=== PATIENT | female | born 1965 | race Caucasian/White ===

== ENCOUNTER 2016-09-21 13:08 | Emergency (ER) | payer OTHER ==
[~2016-09-21] VITALS: Ht 160 cm; Wt 48.8 kg
[~2016-09-21 13:08] MED LIST: HYDR-3533 PO; LOMO2.5T PO; LORA-474 PO; MAGN500T4 PO; PHOSPHOROUS PO; POTA25PA2 PO; VITA500S3 SL
[2016-09-21 13:13] VITALS: BP 140/96; PULSE 118; RESP 20; TEMP 97.7; O2SAT 100
[2016-09-21] MEDS ORDERED: SODIUM CHLOR 0.9% 1000 ML INJ 1,000 ML IV ONE (14:00)
[2016-09-21] MEDS ORDERED: LORA-474 PO (14:02)
[2016-09-21] MEDS ORDERED: [UNRECOGNIZED DRUG - REMARK] PO (14:02)
[2016-09-21 14:15] LABS: AUTOMATED NEUTROPHIL # 3.8 TH/MM3 (1.8-7.7); BASOPHIL % 0.3 % (0.0-2.0); EOSINOPHIL # 0.1 TH/MM3 (0-0.4); EOSINOPHIL % 1.7 % (0.0-4.0); HEMATOCRIT 34.6 % (35.0-46.0); LYMPH % 18.1 % (9.0-44.0); MEAN CELL VOLUME 93.6 FL (80.0-100.0); MEAN CORPUSCULAR HEMOGLOBIN 32.4 PG (27.0-34.0); MEAN CORPUSCULAR HGB CONC 34.6 % (32.0-36.0); NEUT % 71.9 % (16.0-70.0); PLATELET COUNT 215 TH/MM3 (150-450); RED CELL DISTRIBUTION WIDTH 13.6 % (11.6-17.2); WHITE BLOOD COUNT 5.3 TH/MM3 (4.0-11.0)
--- NOTE | 2016-09-21 14:19 | PD ---
HPI Chief Complaint: Musculoskeletal Complaint Time Seen by Provider: 13:41 Travel History International Travel<30 days: No Contact w/Intl Traveler<30days: No Traveled to known affect area: No History of Present Illness HPI This is a 51-year-old female who has a history of breast cancer currently in remission having completed chemotherapy and radiation in April who presents to the emergency department having woken up in the middle the night 5 days ago fallen and passed out. She thinks she felt dizzy. She found herself on the floor. She doesn't think she hit her head. She is reporting severe right sided rib pain, constant, worse with moving and worse with breathing, improved with rest. She feels like it's been getting worse over the past 2 days. She's been taking Tylenol at home but that has not been helping. She denies any associated shortness of breath. She denies any other injuries. PFSH Past Medical History Autoimmune Disease: No Blood Disorders: No Bipolar Disorder: Yes Anxiety: Yes Depression: Yes Cancer: Yes (SKIN CA, RIGHT BREAST) Cardiovascular Problems: No Chemotherapy: Yes (finished in april for Breast Cancer) Diminished Hearing: No Endocrine: No Gastrointestinal Disorders: No Genitourinary: Yes (UTI'S) Headaches: Yes Immune Disorder: No Musculoskeletal: No Neurologic: Yes Psychiatric: Yes (BIPOLAR) Reproductive: No Respiratory: No Immunizations Current: Yes Tetanus Vaccination: Unknown Influenza Vaccination: No ?: Not Menopausal: Yes : 1 Para: 1 Miscarriage: 0 : 0 Tubal Ligation: Yes Past Surgical History Body Medical Devices: PORT RT CHEST Other Surgery: Yes (Skin CA removal) Social History Alcohol Use: Yes (States 6 beers EOD) Tobacco Use: Yes (/2 PPD) Substance Use: Yes (Marijuana occ. ) Allergies-Medications (Allergen,Severity, Reaction): Coded Allergies: No Known Allergies (Verified , 09/21/16) Reported Meds & Prescriptions Reported Meds & Active Scripts Active Reported ["Estrogen pill"] 1 Tab PO DAILY Ativan (Lorazepam) 1 Mg Tab 1 Mg PO Q8H PRN Review of Systems Except as stated in HPI: all other systems reviewed are Neg Physical Exam Narrative GENERAL: Frail female in no acute distress SKIN: Ecchymoses on the lateral right rib cage HEAD: Atraumatic. Normocephalic. EYES: Pupils equal and round. No injection or drainage. ENT: Moist mucous membranes NECK: Trachea midline. CARDIOVASCULAR: Regular rate and rhythm. No murmur appreciated. RESPIRATORY: Clear to auscultation. Breath sounds equal bilaterally. GASTROINTESTINAL: Abdomen soft, non-tender, nondistended. MUSCULOSKELETAL: No obvious deformities. Tender to palpation along the lower lateral rib cage. NEUROLOGICAL: Awake and alert. No obvious cranial nerve deficits. Moving all extremities. PSYCHIATRIC: Appropriate mood and affect; insight and judgment normal. Data Data Last Documented VS Vital Signs Date Time Temp Pulse Resp B/P Pulse Ox O2 Delivery O2 Flow Rate FiO2 09/21/16 13:13 97.7 118 20 140/96 100 Orders Complete Blood Count With Diff (09/21/16 13:51) Comprehensive Metabolic Panel (09/21/16 13:51) ^ Insert Iv (09/21/16 13:51) D-Dimer (09/21/16 13:51) Chest, Single Ap (09/21/16 ) Electrocardiogram (09/21/16 ) Troponin I (09/21/16 13:51) Sodium Chlor 0.9% 1000 Ml Inj (Ns 1000 M (09/21/16 14:00) Morphine Inj (Morphine Inj) (09/21/16 14:30) Ct Pulmonary Angiogram (09/21/16 ) Labs Laboratory Tests Test 09/21/16 14:05 White Blood Count 5.3 TH/MM3 Red Blood Count 3.70 MIL/MM3 Hemoglobin 12.0 GM/DL Hematocrit 34.6 % Mean Corpuscular Volume 93.6 FL Mean Corpuscular Hemoglobin 32.4 PG Mean Corpuscular Hemoglobin 34.6 % Concent Red Cell Distribution Width 13.6 % Platelet Count 215 TH/MM3 Mean Platelet Volume 6.9 FL Neutrophils (%) (Auto) 71.9 % Lymphocytes (%) (Auto) 18.1 % Monocytes (%) (Auto) 8.0 % Eosinophils (%) (Auto) 1.7 % Basophils (%) (Auto) 0.3 % Neutrophils # (Auto) 3.8 TH/MM3 Lymphocytes # (Auto) 1.0 TH/MM3 Monocytes # (Auto) 0.4 TH/MM3 Eosinophils # (Auto) 0.1 TH/MM3 Basophils # (Auto) 0.0 TH/MM3 CBC Comment DIFF FINAL Differential Comment D-Dimer Quantitative (PE/DVT) 0.82 MG/L FEU Sodium Level 137 MEQ/L Potassium Level 3.6 MEQ/L Chloride Level 99 MEQ/L Carbon Dioxide Level 29.4 MEQ/L Anion Gap 9 MEQ/L Blood Urea Nitrogen 13 MG/DL Creatinine 0.64 MG/DL Estimat Glomerular Filtration 97 ML/MIN Rate Random Glucose 119 MG/DL Calcium Level 9.6 MG/DL Total Bilirubin 0.5 MG/DL Aspartate Amino Transf 30 U/L (AST/SGOT) Alanine Aminotransferase 31 U/L (ALT/SGPT) Alkaline Phosphatase 90 U/L Troponin I LESS THAN 0.02 NG/ML Total Protein 7.3 GM/DL Albumin 3.9 GM/DL MDM Medical Decision Making Medical Screen Exam Complete: Yes Emergency Medical Condition: Yes Interpretation(s) Afebrile, tachycardic, mild hypertension No leukocytosis Electrolytes are reassuring Troponin is normal D-dimer is 0.82 Last 24 hours Impressions Chest X-Ray 09/21/16 0000 Signed Impressions: Service Date/Time: Wednesday, September 21, 2016 13:54 - CONCLUSION: 1. No acute cardiopulmonary findings. Moiz Adair MD Differential Diagnosis Rib fracture, pulmonary contusion, pneumothorax, hemothorax, pulmonary embolism Narrative Course This is a 51-year-old female who has a history of breast cancer currently in remission who presents to the emergency department having had a syncopal episode several days ago injuring her right ribs when she fell. She's had increasing rib pain since then. She was placed in a monitor and an IV was established. Labs are obtained including a d-dimer given the patient's episode of syncope, tachycardia and appearance of dyspnea on exam. Labs were all reassuring with the exception of mildly elevated d-dimer. CT pulmonary angiogram was obtained. Chest x-ray demonstrates no sign of pneumothorax or hemothorax. If the CT is negative I think the patient can be discharged with pain control for rib fracture. Celestina Hackett MD Sep 21, 2016 14:19
--- NOTE | 2016-09-21 14:22 | RADHPO ---
EXAM DATE/TIME: 09/21/2016 13:54 [facility] COMPARISON: CHEST SINGLE AP, April 26, 2015, 14:01. INDICATIONS : Syncope. MEDICAL HISTORY : None. SURGICAL HISTORY : None. ENCOUNTER: Initial ACUITY: 3 days PAIN SCORE: 8/10 LOCATION: Bilateral chest FINDINGS: A single view of the chest demonstrates the lungs to be symmetrically aerated without evidence of mas s, infiltrate or effusion. The cardiomediastinal contours are unremarkable. Osseous structures demo nstrated old, healed left clavicular fracture. CONCLUSION: 1. No acute cardiopulmonary findings. Moiz Adair MD on September 21, 2016 at 14:16 Board Certified Radiologist. This report was verified electronically.
[2016-09-21 14:23] LABS: CHLORIDE 99 MEQ/L (98-107); HEMO FLAGS DIFF FINAL; POTASSIUM 3.6 MEQ/L (3.5-5.1); SODIUM (NA) 137 MEQ/L (136-145)
[2016-09-21 14:27] LABS: ANION GAP 9 MEQ/L (5-15); BICARBONATE 29.4 MEQ/L (21.0-32.0); BLOOD UREA NITROGEN 13 MG/DL (7-18)
[2016-09-21 14:30] LABS: ALT (GPT) 31 U/L (10-53); AST (GOT) 30 U/L (15-37); GLOMERULAR FILTRATION RATE 97 ML/MIN (>89)
[2016-09-21] MEDS ORDERED: MORPHINE SULFATE 4 MG/ML INJ IV PUSH ONE ×2 (14:30→15:45)
[2016-09-21 14:32] LABS: TOTAL BILIRUBIN ADULT 0.5 MG/DL (0.2-1.0)
[2016-09-21 14:33] LABS: ALKALINE PHOSPHATASE 90 U/L (45-117)
[2016-09-21] MEDS ORDERED: HYDR-3533 PO (15:42)
--- NOTE | 2016-09-21 15:42 | PD ---
Data Data Last Documented VS Vital Signs Date Time Temp Pulse Resp B/P Pulse Ox O2 Delivery O2 Flow Rate FiO2 09/21/16 13:13 97.7 118 20 140/96 100 Orders Complete Blood Count With Diff (09/21/16 13:51) Comprehensive Metabolic Panel (09/21/16 13:51) ^ Insert Iv (09/21/16 13:51) D-Dimer (09/21/16 13:51) Chest, Single Ap (09/21/16 ) Electrocardiogram (09/21/16 ) Troponin I (09/21/16 13:51) Sodium Chlor 0.9% 1000 Ml Inj (Ns 1000 M (09/21/16 14:00) Morphine Inj (Morphine Inj) (09/21/16 14:30) Ct Pulmonary Angiogram (09/21/16 ) Resp Incentive Spirometry (09/21/16 ) Morphine Inj (Morphine Inj) (09/21/16 15:45) Labs Laboratory Tests Test 09/21/16 14:05 White Blood Count 5.3 TH/MM3 Red Blood Count 3.70 MIL/MM3 Hemoglobin 12.0 GM/DL Hematocrit 34.6 % Mean Corpuscular Volume 93.6 FL Mean Corpuscular Hemoglobin 32.4 PG Mean Corpuscular Hemoglobin 34.6 % Concent Red Cell Distribution Width 13.6 % Platelet Count 215 TH/MM3 Mean Platelet Volume 6.9 FL Neutrophils (%) (Auto) 71.9 % Lymphocytes (%) (Auto) 18.1 % Monocytes (%) (Auto) 8.0 % Eosinophils (%) (Auto) 1.7 % Basophils (%) (Auto) 0.3 % Neutrophils # (Auto) 3.8 TH/MM3 Lymphocytes # (Auto) 1.0 TH/MM3 Monocytes # (Auto) 0.4 TH/MM3 Eosinophils # (Auto) 0.1 TH/MM3 Basophils # (Auto) 0.0 TH/MM3 CBC Comment DIFF FINAL Differential Comment D-Dimer Quantitative (PE/DVT) 0.82 MG/L FEU Sodium Level 137 MEQ/L Potassium Level 3.6 MEQ/L Chloride Level 99 MEQ/L Carbon Dioxide Level 29.4 MEQ/L Anion Gap 9 MEQ/L Blood Urea Nitrogen 13 MG/DL Creatinine 0.64 MG/DL Estimat Glomerular Filtration 97 ML/MIN Rate Random Glucose 119 MG/DL Calcium Level 9.6 MG/DL Total Bilirubin 0.5 MG/DL Aspartate Amino Transf 30 U/L (AST/SGOT) Alanine Aminotransferase 31 U/L (ALT/SGPT) Alkaline Phosphatase 90 U/L Troponin I LESS THAN 0.02 NG/ML Total Protein 7.3 GM/DL Albumin 3.9 GM/DL MDM Supervised Visit with RAMIREZ: No Diagnosis Primary Impression: Rib contusion Qualified Code: S20.211A - Rib contusion, right, initial encounter Patient Instructions: General Instructions Additional Instruction: If you develop increasing chest pain, shortness of breath, fever or severe pain return to the emergency room. Med/Other Pt SpecificInfo: Prescription(s) given Scripts Hydrocodone-Acetaminophen (Lortab)5-325 Mg Tab1-2 Tab PO Q6H PRN (PAIN) #20 TAB Ref 0 Prov:Celestina Hackett MD 09/21/16 Disposition: 01 DISCHARGE HOME Condition: Stable Celestina Hackett MD Sep 21, 2016 15:42
--- NOTE | 2016-09-21 15:51 | RADHPO ---
EXAM DATE/TIME: 09/21/2016 15:20 [facility] COMPARISON: CT ABDOMEN & PELVIS W CONTRAST, April 11, 2016, 23:44. INDICATIONS : Chest pain. evaluate for embolism. IV CONTRAST: 70 cc Omnipaque 350 (iohexol) IV RADIATION DOSE: 6.99 CTDIvol (mGy) MEDICAL HISTORY : None SURGICAL HISTORY : None. ENCOUNTER: Initial ACUITY: 1 day PAIN SCALE: 4/10 LOCATION: chest TECHNIQUE: Volumetric scanning of the chest was performed using a pulmonary embolism protocol MIP images were re constructed. Using automated exposure control and adjustment of the mA and/or kV according to patien t size, radiation dose was kept as low as reasonably achievable to obtain optimal diagnostic quality images. FINDINGS: PULMONARY ARTERIES: No filling defects are seen in the pulmonary arteries through the segmental level. LUNGS: There is no consolidation or pneumothorax . No concerning pulmonary nodule is visualized. PLEURAE: There is no pleural thickening or pleural effusion. MEDIASTINUM: There is good visualization of the great vessels of the middle mediastinum. No evidence of mediastin al or hilar adenopathy/mass. MUSCULOSKELETAL: Within normal limits for patient age. MISCELLANEOUS: The visualized upper abdominal organs demonstrate no acute abnormality. There is a small calcified ly mph node immediately posterior to the caudate lobe of the liver. CONCLUSION: 1. No pulmonary embolus identified. 2. 1 cm calcified lymph node posterior to the caudate lobe of the liver. Moiz Adair MD on September 21, 2016 at 15:46 Board Certified Radiologist. This report was verified electronically.
[2016-09-21 16:00] VITALS: BP 140/71; PULSE 78; RESP 14; RESP 16; O2SAT 96
[2016-09-21] MEDS ORDERED: IOHEXOL 350 MG/ML 10 ML VIAL (for RAD DIAG) IV ONE (16:36)
--- NOTE | 2016-09-22 16:39 | EKG ---
Date Performed: 09/21/2016 Time Performed: 14:01:16 PTAGE: 51 years EKG: Sinus rhythm Normal ECG NO PREVIOUS TRACING DOCTOR: Steph Bella Interpretating Date/Time 09/22/2016 16:35:04
== END 2016-09-21 16:35 | disposition home or self-care (01) ==
LOC: PHED 13:08
DX: S20.211A Contusion of right front wall of thorax, initial encounter (principal); F17.210 Nicotine dependence, cigarettes, uncomplicated; W17.89XA Other fall from one level to another, initial encounter; Y93.89 Activity, other specified; Y92.009 Unspecified place in unspecified non-institutional (private) residence as the place of occurrence of the external cause; R55 Syncope and collapse; R00.0 Tachycardia, unspecified
CPT/HCPCS: 71010; 71275; 80053; 84484; 85025; 85379; 93005; 94150; 96361; 96374; 96376; 99284; J2270; J7030; Q9967

== ENCOUNTER 2017-01-08 09:37 | Emergency (ER) | payer OTHER ==
[~2017-01-08] VITALS: Ht 160 cm; Wt 49.7 kg
[~2017-01-08 09:37] MED LIST changes: -LOMO2.5T PO; -MAGN500T4 PO; -PHOSPHOROUS PO; -POTA25PA2 PO; -VITA500S3 SL; +[UNRECOGNIZED DRUG - REMARK] PO
[2017-01-08 09:42] VITALS: BP 139/94; PULSE 152; RESP 18; TEMP 98.1; O2SAT 100
[2017-01-08 09:59] VITALS: BP 166/91; PULSE 126; RESP 18; O2SAT 100
[2017-01-08 10:04] VITALS: O2SAT 100
--- NOTE | 2017-01-08 10:09 | PD ---
HPI Chief Complaint: Respiratory Symptoms Time Seen by Provider: 09:53 Travel History International Travel<30 days: No Contact w/Intl Traveler<30days: No Traveled to known affect area: No History of Present Illness HPI The patient was seen and examined in the presence of the nurse. This patient woke up 3 days ago with left lower chest pain. It's readily reproducible with a deep breath. Denies fever or injury or cough. She is very anxious and takes Ativan daily but denies withdrawal or missing doses. Last dose was last night. She is a smoker but denies cardiac or pulmonary disease. No alleviating factors. Severity is moderate. PFSH Past Medical History Autoimmune Disease: No Blood Disorders: No Bipolar Disorder: Yes Anxiety: Yes Depression: Yes Cancer: Yes (SKIN CA, RIGHT BREAST) Cardiovascular Problems: No Chemotherapy: Yes (finished in april for Breast Cancer) Diminished Hearing: No Endocrine: No Gastrointestinal Disorders: No Genitourinary: Yes (UTI'S) Headaches: Yes Immune Disorder: No Musculoskeletal: No Neurologic: Yes Psychiatric: Yes (BIPOLAR) Reproductive: No Respiratory: No Immunizations Current: Yes Tetanus Vaccination: > 5 Years Influenza Vaccination: No ?: Not Menopausal: Yes : 1 Para: 1 Miscarriage: 0 : 0 Tubal Ligation: Yes Past Surgical History Body Medical Devices: PORT RT CHEST Other Surgery: Yes (Skin CA removal) Social History Alcohol Use: Yes (States 6 beers EOD) Tobacco Use: Yes (/2 PPD) Substance Use: Yes (Marijuana occ. ) Allergies-Medications (Allergen,Severity, Reaction): Coded Allergies: No Known Allergies (Verified , 01/08/17) Reported Meds & Prescriptions Reported Meds & Active Scripts Active Tramadol (Tramadol HCl) 50 Mg Tab 50 Mg PO Q6H PRN Reported ["Estrogen pill"] 1 Tab PO DAILY Ativan (Lorazepam) 1 Mg Tab 1 Mg PO Q8H PRN Review of Systems General / Constitutional: No: Fever Eyes: No: Visual changes HENT: No: Headaches Cardiovascular: Positive: Chest Pain or Discomfort, Tachycardia Respiratory: No: Shortness of Breath Gastrointestinal: No: Abdominal Pain Genitourinary: No: Dysuria Musculoskeletal: No: Pain Skin: No Rash Neurologic: No: Weakness Psychiatric: Positive: Anxiety, No: Depression Endocrine: No: Polydipsia Hematologic/Lymphatic: No: Easy Bruising Physical Exam Narrative GENERAL: Thin anxious tachycardic patient with pleuritic chest pain. SKIN: Focused skin assessment reveals no rash and nodules. Skin is Warm and dry. HEAD: Atraumatic. Normocephalic. EYES: Pupils equal and round. No scleral icterus. No injection or drainage. ENT: No nasal bleeding or discharge. Mucous membranes pink and moist. NECK: Trachea midline. No JVD. CARDIOVASCULAR: Regular rate and rhythm. No murmur appreciated. Tachycardic at 130 RESPIRATORY: No accessory muscle use. Clear to auscultation. Breath sounds equal bilaterally. GASTROINTESTINAL: Abdomen soft, non-tender, nondistended. Hepatic and splenic margins not palpable. MUSCULOSKELETAL: No obvious deformities. No clubbing. No cyanosis. No edema. NEUROLOGICAL: Awake and alert. No obvious cranial nerve deficits. Motor grossly within normal limits. Normal speech. PSYCHIATRIC: Very anxious mood and affect; insight and judgment normal. Data Data Last Documented VS Vital Signs Date Time Temp Pulse Resp B/P Pulse Ox O2 Delivery O2 Flow Rate FiO2 01/08/17 11:10 16 01/08/17 10:23 106 121/80 96 Room Air 01/08/17 09:42 98.1 Orders Complete Blood Count With Diff (01/08/17 10:01) Basic Metabolic Panel (Bmp) (01/08/17 10:01) D-Dimer (01/08/17 10:01) Act Partial Throm Time (Ptt) (01/08/17 10:01) Prothrombin Time / Inr (Pt) (01/08/17 10:01) Ckmb (Isoenzyme) Profile (01/08/17 10:01) Troponin I (01/08/17 10:01) Iv Access Insert/Monitor (01/08/17 10:01) Electrocardiogram (01/08/17 10:01) Ecg Monitoring (01/08/17 10:01) Oximetry (01/08/17 10:01) Chest, Single Ap (01/08/17 10:01) Sodium Chloride 0.9% Flush (Ns Flush) (01/08/17 10:15) Lorazepam Inj (Ativan Inj) (01/08/17 10:15) Acetamin-Hydrocod 325-5 Mg ([place] 5-325 (01/08/17 10:15) CKMB (01/08/17 10:05) CKMB% (01/08/17 10:05) Ct Pulmonary Angiogram (01/08/17 ) Iohexol 350 Inj (Omnipaque 350 Inj) (01/08/17 11:35) Labs Laboratory Tests Test 01/08/17 10:05 White Blood Count 6.2 TH/MM3 Red Blood Count 4.34 MIL/MM3 Hemoglobin 14.1 GM/DL Hematocrit 42.4 % Mean Corpuscular Volume 97.7 FL Mean Corpuscular Hemoglobin 32.5 PG Mean Corpuscular Hemoglobin 33.3 % Concent Red Cell Distribution Width 13.6 % Platelet Count 246 TH/MM3 Mean Platelet Volume 7.4 FL Neutrophils (%) (Auto) 64.9 % Lymphocytes (%) (Auto) 26.2 % Monocytes (%) (Auto) 6.6 % Eosinophils (%) (Auto) 1.7 % Basophils (%) (Auto) 0.6 % Neutrophils # (Auto) 4.1 TH/MM3 Lymphocytes # (Auto) 1.6 TH/MM3 Monocytes # (Auto) 0.4 TH/MM3 Eosinophils # (Auto) 0.1 TH/MM3 Basophils # (Auto) 0.0 TH/MM3 CBC Comment DIFF FINAL Differential Comment Prothrombin Time 9.8 SEC Prothromb Time International 0.9 RATIO Ratio Activated Partial 27.1 SEC Thromboplast Time D-Dimer Quantitative (PE/DVT) 0.97 MG/L FEU Sodium Level 142 MEQ/L Potassium Level 3.5 MEQ/L Chloride Level 100 MEQ/L Carbon Dioxide Level 29.8 MEQ/L Anion Gap 12 MEQ/L Blood Urea Nitrogen 11 MG/DL Creatinine 0.86 MG/DL Estimat Glomerular Filtration 69 ML/MIN Rate Random Glucose 124 MG/DL Calcium Level 10.2 MG/DL Total Creatine Kinase 152 U/L Creatine Kinase MB 1.3 NG/ML Troponin I LESS THAN 0.02 NG/ML MDM Medical Decision Making Medical Screen Exam Complete: Yes Emergency Medical Condition: Yes Medical Record Reviewed: Yes Differential Diagnosis Differential diagnosis includes [place], angina, pericarditis, pleurisy, GERD, anxiety. Narrative Course I have reviewed the patient's electronic medical record. IV placed I reviewed the EKG which shows sinus tachycardia without ectopy or ST elevation I reviewed the chest x-ray which is normal Extended cardiac monitoring shows sinus tachycardia without ectopy CBC is normal Metabolic profile is normal CK shows a normal MB percent Troponin is normal Coagulation studies are normal D-dimer was 0.97, not sufficient to rule out PE Given her pleuritic pain I wanted to rule out PE. CT pulmonary and RhoGAM was done. There is no PE. I spoke with radiologist about the findings. There is a area of induration and some fluid in the right breast as this is the rest she had a lumpectomy and radiation for breast cancer. Prior studies have showed induration and fluid and that exact same region but it is more prominent on today's study. I reviewed that at length with the patient and she is going to call her primary physician and oncologist to discuss these findings in any further workup that may be indicated. Her chest pain is clearly noncardiac and will not require inpatient evaluation. It seems musculoskeletal which is why is worsened with deep breath and torso movement Wrote her some tramadol to use as needed I gave her a pain pill and IV Ativan dose Her tachycardia has resolved and her heart rate is sinus rhythm in the 90s I gave her a pain pill and dose of Ativan for anxiety. She says she can get a ride home. Diagnosis Primary Impression: Non-cardiac chest pain Additional Impression: Pleuritic chest pain Additional Instructions: The patient was advised to follow up with their primary care physician and oncologist and return if they worsen. Discuss your CT findings with your physicians Med/Other Pt SpecificInfo: Prescription(s) given Scripts Tramadol 50 Mg Tab50 Mg PO Q6H PRN (PAIN) #20 TAB Ref 0 Prov:Danny Escalera MD 01/08/17 Disposition: 01 DISCHARGE HOME Condition: Stable Danny Escalera MD January 08, 2017 10:09
[2017-01-08 10:11] LABS: AUTOMATED NEUTROPHIL # 4.1 TH/MM3 (1.8-7.7); BASOPHIL % 0.6 % (0.0-2.0); EOSINOPHIL # 0.1 TH/MM3 (0-0.4); EOSINOPHIL % 1.7 % (0.0-4.0); HEMATOCRIT 42.4 % (35.0-46.0); HEMO FLAGS DIFF FINAL; LYMPH % 26.2 % (9.0-44.0); LYMPHOCYTE # 1.6 TH/MM3 (1.0-4.8); MEAN CELL VOLUME 97.7 FL (80.0-100.0); MEAN CORPUSCULAR HEMOGLOBIN 32.5 PG (27.0-34.0); MEAN CORPUSCULAR HGB CONC 33.3 % (32.0-36.0); MONO % 6.6 % (0.0-8.0); NEUT % 64.9 % (16.0-70.0); PLATELET COUNT 246 TH/MM3 (150-450); RED BLOOD COUNT 4.34 MIL/MM3 (4.00-5.30); RED CELL DISTRIBUTION WIDTH 13.6 % (11.6-17.2); WHITE BLOOD COUNT 6.2 TH/MM3 (4.0-11.0)
[2017-01-08] MEDS ORDERED: SODIUM CHLORIDE 0.9% FLUSH 10 ML FLUSH IVF PRN (10:15)
[2017-01-08] MEDS ORDERED: LORazepam 2 MG/ML VIAL IV PUSH ONE (10:15)
[2017-01-08] MEDS ORDERED: ACETAMINOPHEN/HYDROcodone 325 MG/5 MG TAB PO ONE (10:15)
[2017-01-08 10:23] VITALS: BP 121/80; PULSE 106; RESP 16; O2SAT 96
[2017-01-08 10:29] LABS: CHLORIDE 100 MEQ/L (98-107); POTASSIUM 3.5 MEQ/L (3.5-5.1); SODIUM (NA) 142 MEQ/L (136-145)
[2017-01-08 10:34] LABS: ANION GAP 12 MEQ/L (5-15); APTT (PATIENT) 27.1 SEC (24.3-30.1); BICARBONATE 29.8 MEQ/L (21.0-32.0); BLOOD UREA NITROGEN 11 MG/DL (7-18); INTERNATIONAL NORMALIZED RATIO 0.9 RATIO; PROTHROMBIN TIME - PATIENT 9.8 SEC (9.8-11.6)
--- NOTE | 2017-01-08 10:34 | RADHPO ---
EXAM DATE/TIME: 01/08/2017 10:15 [facility] COMPARISON: CHEST SINGLE AP, September 21, 2016, 13:54. INDICATIONS : Left side chest pain & shortness of breath. MEDICAL HISTORY : Carcinoma, breast. Skin Cancer. Chemotherapy. Smoker. SURGICAL HISTORY : Tubal ligation. ENCOUNTER: Initial ACUITY: 4 - 6 days PAIN SCORE: 10/10 LOCATION: Left chest FINDINGS: A single view of the chest demonstrates the lungs to be symmetrically aerated without evidence of mas s, infiltrate or effusion. The cardiomediastinal contours are unremarkable. Osseous structures are intact. CONCLUSION: No acute disease. Doug Adair MD FACR on January 08, 2017 at 10:31 Board Certified Radiologist. This report was verified electronically.
[2017-01-08 10:37] LABS: GLOMERULAR FILTRATION RATE 69 ML/MIN (>89)
[2017-01-08 10:40] LABS: CREATINE KINASE 152 U/L (26-192)
[2017-01-08 10:53] LABS: CKMB 1.3 NG/ML (0.5-3.6)
[2017-01-08] MEDS ORDERED: IOHEXOL 350 MG/ML 10 ML VIAL (for RAD DIAG) IV ONE (11:35)
--- NOTE | 2017-01-08 12:06 | RADHPO ---
EXAM DATE/TIME: 01/08/2017 11:22 [facility] COMPARISON: CT PULMONARY ANGIOGRAM, September 21, 2016, 15:20. INDICATIONS : Left lower chest pain x 3 days. IV CONTRAST: 85 cc Omnipaque 350 (iohexol) IV RADIATION DOSE: 6.39 CTDIvol (mGy) MEDICAL HISTORY : Carcinoma, breast. SURGICAL HISTORY : Tubal ligation. ENCOUNTER: Initial ACUITY: 3 days PAIN SCALE: 5/10 LOCATION: Left lower chest TECHNIQUE: Volumetric scanning of the chest was performed using a pulmonary embolism protocol MIP images were re constructed. Using automated exposure control and adjustment of the mA and/or kV according to patien t size, radiation dose was kept as low as reasonably achievable to obtain optimal diagnostic quality images. FINDINGS: There are minimal parenchymal changes laterally in the right lung. There is no axillary adenopathy. There is radiographically significant mediastinal adenopathy. There is no evidence for central pulmonary emboli. There is no pericardial effusion. There is induration in the right chest wall with a small fluid collection in the right breast. The i nduration and the swelling in the right chest wall has progressed. Granuloma is present in the spleen. CONCLUSION: 1. There is no evidence for central pulmonary emboli. 2. Abnormal right breast. 3. Minimal induration in the lung beneath the right breast. The patient has had previous radiation therapy, this may well be the result of such. Doug Adair MD FACR on January 08, 2017 at 11:50 Board Certified Radiologist. This report was verified electronically.
[2017-01-08] MEDS ORDERED: TRAM50TA PO (14:29)
[2017-01-08 15:05] VITALS: BP 117/75; PULSE 85; RESP 18; O2SAT 99
--- NOTE | 2017-01-09 13:50 | EKG ---
Date Performed: 01/08/2017 Time Performed: 09:46:00 PTAGE: 51 years EKG: Probable sinus tachycardia Right atrial enlargement Minimal lateral ST segment changes Comp ared to previous tracing, the right atrial enlargement and the sinus tachycardia are new. Consider a nd exclude pulmonary embolus. The minimal lateral ST segment changes are new. Abnormal ECG PREVIOUS TRACING : 09/21/2016 14.01 DOCTOR: Mary Wilcox Interpretating Date/Time 01/09/2017 13:48:56
== END 2017-01-08 15:05 | disposition home or self-care (01) ==
LOC: PHED 09:37
DX: R07.89 Other chest pain (principal); R07.81 Pleurodynia; R94.31 Abnormal electrocardiogram [ECG] [EKG]; F17.200 Nicotine dependence, unspecified, uncomplicated; Z86.59 Personal history of other mental and behavioral disorders; Z85.828 Personal history of other malignant neoplasm of skin; Z85.3 Personal history of malignant neoplasm of breast; Z87.448 Personal history of other diseases of urinary system; Z86.69 Personal history of other diseases of the nervous system and sense organs
CPT/HCPCS: 71010; 71275; 80048; 82550; 82552; 84484; 85025; 85379; 85610; 85730; 93005; 96374; 99284; J2060; Q9967

== ENCOUNTER 2017-01-12 18:08 | Emergency (ER) | payer OTHER ==
[~2017-01-12] VITALS: Ht 160 cm; Wt 50.0 kg
[~2017-01-12 18:08] MED LIST changes: -HYDR-3533 PO; +TRAM50TA PO
[2017-01-12 18:27] VITALS: BP 114/69; PULSE 93; RESP 15; TEMP 98; O2SAT 98
[2017-01-12] MEDS ORDERED: SODIUM CHLORIDE 0.9% FLUSH 10 ML FLUSH IVF PRN (18:45)
--- NOTE | 2017-01-12 18:48 | PD ---
HPI . Seizure Chief Complaint: Seizure Time Seen by Provider: 18:32 Travel History International Travel<30 days: No Contact w/Intl Traveler<30days: No Traveled to known affect area: No History of Present Illness HPI Patient presents to us via [facility] status post a possible seizure. EMS reports that she had an episode en route of diffuse movement but that it did not appear to be a seizure. It was not associated with loss of consciousness or postictal period. Patient admits to alcohol use. She drinks daily. She believes that she has had 2 beers so far today. Patient denies any associated trauma associated with seizure. She has no symptoms currently. PFSH Past Medical History Autoimmune Disease: No Blood Disorders: No Bipolar Disorder: Yes Anxiety: Yes Depression: Yes Cancer: Yes (SKIN CA, RIGHT BREAST) Cardiovascular Problems: No Chemotherapy: Yes (finished in [place] for Breast Cancer) Diminished Hearing: No Endocrine: No Gastrointestinal Disorders: No Genitourinary: Yes (UTI'S) Headaches: Yes Immune Disorder: No Musculoskeletal: No Neurologic: Yes Psychiatric: Yes (BIPOLAR) Reproductive: No Respiratory: No Immunizations Current: Yes Tetanus Vaccination: Unknown Influenza Vaccination: No ?: Not Menopausal: Yes : 1 Para: 1 Miscarriage: 0 : 0 Tubal Ligation: Yes Past Surgical History Body Medical Devices: PORT RT CHEST Other Surgery: Yes (Skin CA removal) Social History Alcohol Use: Yes (DAILY) Tobacco Use: Yes (1/2 PPD) Substance Use: Yes (Marijuana occ. ) Allergies-Medications (Allergen,Severity, Reaction): Coded Allergies: No Known Allergies (Verified , 01/12/17) Reported Meds & Prescriptions Reported Meds & Active Scripts Active Tramadol (Tramadol HCl) 50 Mg Tab 50 Mg PO Q6H PRN Reported ["Estrogen pill"] 1 Tab PO DAILY Ativan (Lorazepam) 1 Mg Tab 1 Mg PO Q8H PRN Review of Systems Except as stated in HPI: all other systems reviewed are Neg General / Constitutional: No: Fever, Chills Eyes: No: Blurred Vision HENT: No: Headaches Cardiovascular: No: Chest Pain or Discomfort Respiratory: Positive: Shortness of Breath Gastrointestinal: No: Nausea, Vomiting, Diarrhea Genitourinary: No: Urgency, Frequency, Dysuria Neurologic: Positive: Seizures Psychiatric: Positive: Substance Abuse Physical Exam Narrative GENERAL: Patient appears pleasantly intoxicated. SKIN: Warm and dry. HEAD: Atraumatic. Normocephalic. EYES: Pupils equal and round. Sclera are anicteric. Extraocular movements are intact. ENT: No nasal bleeding or discharge. Mucous membranes pink and moist. NECK: Trachea midline. Neck is supple. CARDIOVASCULAR: Regular rate and rhythm. Heart sounds are normal. RESPIRATORY: No accessory muscle use. Lungs are clear with full air movement throughout. GASTROINTESTINAL: Abdomen soft, non-tender, nondistended. MUSCULOSKELETAL: No obvious deformities. No edema. NEUROLOGICAL: Awake and alert. No obvious cranial nerve deficits. Motor grossly within normal limits. Normal speech. PSYCHIATRIC: Appropriate mood and affect; insight and judgment normal. Data Data Last Documented VS Vital Signs Date Time Temp Pulse Resp B/P Pulse Ox O2 Delivery O2 Flow Rate FiO2 01/12/17 18:37 17 98 Room Air 01/12/17 18:27 98.0 93 114/69 Orders Complete Blood Count With Diff (01/12/17 18:32) Alcohol (Ethanol) (01/12/17 18:32) Iv Access Insert/Monitor (01/12/17 18:32) Comprehensive Metabolic Panel (01/12/17 18:32) Sodium Chloride 0.9% Flush (Ns Flush) (01/12/17 18:45) Drug Screen, Random Urine (01/12/17 18:43) Labs Laboratory Tests Test 01/12/17 18:45 White Blood Count 6.5 TH/MM3 Red Blood Count 3.48 MIL/MM3 Hemoglobin 11.6 GM/DL Hematocrit 34.1 % Mean Corpuscular Volume 97.9 FL Mean Corpuscular Hemoglobin 33.2 PG Mean Corpuscular Hemoglobin 33.9 % Concent Red Cell Distribution Width 13.7 % Platelet Count 157 TH/MM3 Mean Platelet Volume 8.1 FL Neutrophils (%) (Auto) 78.8 % Lymphocytes (%) (Auto) 10.8 % Monocytes (%) (Auto) 8.6 % Eosinophils (%) (Auto) 1.5 % Basophils (%) (Auto) 0.3 % Neutrophils # (Auto) 5.1 TH/MM3 Lymphocytes # (Auto) 0.7 TH/MM3 Monocytes # (Auto) 0.6 TH/MM3 Eosinophils # (Auto) 0.1 TH/MM3 Basophils # (Auto) 0.0 TH/MM3 CBC Comment DIFF FINAL Differential Comment Sodium Level 131 MEQ/L Potassium Level 2.9 MEQ/L Chloride Level 89 MEQ/L Carbon Dioxide Level 24.8 MEQ/L Anion Gap 17 MEQ/L Blood Urea Nitrogen 2 MG/DL Creatinine 0.73 MG/DL Estimat Glomerular Filtration 84 ML/MIN Rate Random Glucose 95 MG/DL Calcium Level 8.6 MG/DL Total Bilirubin 0.7 MG/DL Aspartate Amino Transf 95 U/L (AST/SGOT) Alanine Aminotransferase 49 U/L (ALT/SGPT) Alkaline Phosphatase 110 U/L Total Protein 7.2 GM/DL Albumin 3.9 GM/DL Ethyl Alcohol Level 34 MG/DL [facility] Medical Decision Making Medical Screen Exam Complete: Yes Emergency Medical Condition: Yes Differential Diagnosis Differential diagnosis of seizure includes but is not limited to epilepsy, electrolyte abnormality, previous stroke, closed head injury Narrative Course Patient presents to us status post some abnormal movement at home. She appears intoxicated. CBC & BMP Diagram 01/12/17 18:45 LFTs are unremarkable. Alcohol level is 34. I did not check a magnesium level but I suspect that it is low also. I will place her on supplemental potassium and magnesium. Diagnosis Primary Impression: Tremor Additional Impressions: Alcohol abuse Hypokalemia Patient Instructions: General Instructions, Hypokalemia (DC) Med/Other Pt SpecificInfo: Prescription(s) given Scripts Potassium Chloride ER 20 Meq Tab20 Meq PO DAILY #30 TAB Ref 0 starting after the 5 days of twice daily replacement Prov:Camille Arenas MD 01/12/17 Magnesium 400 Mg [id number] Mg PO DAILY #30 TAB Ref 0 Prov:Camille Arenas MD 01/12/17 Potassium Chloride ER 20 Meq Tab40 Meq PO BID 7 Days Ref 0 Prov:Camille Arenas MD 01/12/17 Disposition: DISCHARGE HOME Condition: Stable Camille Arenas MD January 12, 2017 18:48
[2017-01-12 19:06] LABS: AUTOMATED NEUTROPHIL # 5.1 TH/MM3 (1.8-7.7); BASOPHIL % 0.3 % (0.0-2.0); EOSINOPHIL # 0.1 TH/MM3 (0-0.4); EOSINOPHIL % 1.5 % (0.0-4.0); HEMATOCRIT 34.1 % (35.0-46.0); HEMO FLAGS DIFF FINAL; LYMPH % 10.8 % (9.0-44.0); LYMPHOCYTE # 0.7 TH/MM3 (1.0-4.8); MEAN CELL VOLUME 97.9 FL (80.0-100.0); MEAN CORPUSCULAR HEMOGLOBIN 33.2 PG (27.0-34.0); MEAN CORPUSCULAR HGB CONC 33.9 % (32.0-36.0); MONO % 8.6 % (0.0-8.0); NEUT % 78.8 % (16.0-70.0); PLATELET COUNT 157 TH/MM3 (150-450); RED BLOOD COUNT 3.48 MIL/MM3 (4.00-5.30); RED CELL DISTRIBUTION WIDTH 13.7 % (11.6-17.2); WHITE BLOOD COUNT 6.5 TH/MM3 (4.0-11.0)
[2017-01-12 19:39] LABS: ALKALINE PHOSPHATASE 110 U/L (45-117); ALT (GPT) 49 U/L (10-53); ANION GAP 17 MEQ/L (5-15); AST (GOT) 95 U/L (15-37); BICARBONATE 24.8 MEQ/L (21.0-32.0); BLOOD UREA NITROGEN 2 MG/DL (7-18); CHLORIDE 89 MEQ/L (98-107); GLOMERULAR FILTRATION RATE 84 ML/MIN (>89); SODIUM (NA) 131 MEQ/L (136-145); TOTAL BILIRUBIN ADULT 0.7 MG/DL (0.2-1.0)
[2017-01-12 19:43] LABS: POTASSIUM 2.9 MEQ/L (3.5-5.1)
[2017-01-12] MEDS ORDERED: POTASSIUM CHLORIDE 20 MEQ CONTROLLED RELEASE TAB PO ONE (20:00)
[2017-01-12] MEDS ORDERED: POTA-163 PO ×2 (20:05→20:06)
[2017-01-12] MEDS ORDERED: MAGN1TAB14 PO (20:06)
== END 2017-01-12 20:22 | disposition home or self-care (01) ==
LOC: NEPD 18:08
DX: G25.0 Essential tremor (principal); E87.6 Hypokalemia; F10.10 Alcohol abuse, uncomplicated; F17.210 Nicotine dependence, cigarettes, uncomplicated
CPT/HCPCS: 80053; 80307; 85025; 99284

== ENCOUNTER 2017-05-17 19:19 | Emergency (ER) | payer OTHER ==
[~2017-05-17] VITALS: Ht 160 cm; Wt 49.3 kg
[~2017-05-17 19:19] MED LIST changes: +MAGN1TAB14 PO; +POTA-163 PO
[2017-05-17 19:39] VITALS: BP 118/80; PULSE 88; RESP 14; TEMP 97.9; O2SAT 100
[2017-05-17] MEDS ORDERED: ANAS1TAB PO (19:51)
[2017-05-17] MEDS ORDERED: ZOFR4TAB PO (19:52)
[2017-05-17 20:00] VITALS: BP 118/80; PULSE 88; RESP 12; TEMP 97.9; O2SAT 100
[2017-05-17] MEDS ORDERED: SODIUM CHLORIDE 0.9% FLUSH 10 ML FLUSH IV FLUSH PRN (20:30)
--- NOTE | 2017-05-17 20:38 | PD ---
HPI Chief Complaint: General Weakness Time Seen by Provider: 20:20 Travel History International Travel<30 days: No Contact w/Intl Traveler<30days: No Traveled to known affect area: No History of Present Illness HPI 52-year-old female here complaining of generalized weakness. Patient reports that her symptoms have been going on for the last month. She believes that she may have an alleged light abnormality and is requesting lab work. She denies pain anywhere. No melena or hematochezia. No fevers or recent illness. She admits to drinking a few beers today and taking some Ativan which she is prescribed for anxiety. She denies any other illicit drug use. PFSH Past Medical History Autoimmune Disease: No Blood Disorders: No Bipolar Disorder: Yes Anxiety: Yes Depression: Yes Cancer: Yes (RIGHT BREAST) Cardiovascular Problems: No Chemotherapy: Yes (finished in [place] for Breast Cancer) Diminished Hearing: No Endocrine: No Gastrointestinal Disorders: No Genitourinary: Yes (UTI'S) Headaches: Yes Immune Disorder: No Musculoskeletal: No Neurologic: Yes Psychiatric: Yes (BIPOLAR) Reproductive: No Respiratory: No Immunizations Current: Yes Tetanus Vaccination: Unknown Influenza Vaccination: No ?: Not Menopausal: Yes : 1 Para: 1 Miscarriage: 0 : 0 Tubal Ligation: Yes Past Surgical History Body Medical Devices: PORT RT CHEST Other Surgery: Yes (RIGHT LUMPECTOMY) Social History Alcohol Use: Yes (DAILY BEER CONSUMPTION ) Tobacco Use: Yes Substance Use: Yes (MARIJUANA) Allergies-Medications (Allergen,Severity, Reaction): Coded Allergies: No Known Allergies (Verified , 05/17/17) Reported Meds & Prescriptions Reported Meds & Active Scripts Active Magnesium 400 Mg Tab 400 Mg PO DAILY Reported Zofran (Ondansetron HCl) 4 Mg Tab 4 Mg PO Q8HR PRN Anastrozole 1 Mg Tab 1 Mg PO DAILY Ativan (Lorazepam) 1 Mg Tab 1 Mg PO Q8H PRN Review of Systems Except as stated in HPI: all other systems reviewed are Neg Physical Exam Narrative GENERAL: Well-developed, well-nourished, awake, comfortable, no apparent distress. SKIN: Focused skin assessment warm/dry. HEAD: Atraumatic. Normocephalic. EYES: Pupils equal and round. No scleral icterus. No injection or drainage. ENT: Mucous membranes pink and moist. NECK: Trachea midline. No JVD. CARDIOVASCULAR: Regular rate and rhythm. RESPIRATORY: No accessory muscle use. Clear to auscultation. Breath sounds equal bilaterally. GASTROINTESTINAL: Abdomen soft, non-tender, nondistended. MUSCULOSKELETAL: No obvious deformities. No clubbing. No cyanosis. No edema. NEUROLOGICAL: Awake and alert. No obvious cranial nerve deficits. Motor grossly within normal limits. Normal speech. PSYCHIATRIC: Appropriate mood and affect; insight and judgment normal. Data Data Last Documented VS Vital Signs Date Time Temp Pulse Resp B/P (MAP) Pulse Ox O2 Delivery O2 Flow Rate FiO2 05/17/17 22:17 78 14 85/50 (62) 97 Room Air 05/17/17 19:39 97.9 Orders Orders Complete Blood Count With Diff (05/17/17 20:24) Comprehensive Metabolic Panel (05/17/17 20:24) Urinalysis - C+S If Indicated (05/17/17 20:24) Iv Access Insert/Monitor (05/17/17 20:24) Ecg Monitoring (05/17/17 20:24) Oximetry (05/17/17 20:24) Sodium Chloride 0.9% Flush (Ns Flush) (05/17/17 20:30) Magnesium (Mg) (05/17/17 20:24) Phosphorus (Po4) (05/17/17 20:24) Alcohol (Ethanol) (05/17/17 20:24) Potassium Chloride (Kcl) (05/17/17 22:30) Labs Laboratory Tests Test 05/17/17 20:50 05/17/17 21:05 Urine Color YELLOW Urine Turbidity CLEAR Urine pH 5.5 Urine Specific [place] 1.004 Urine Protein NEG mg/dL Urine Glucose (UA) NEG mg/dL Urine Ketones NEG mg/dL Urine Occult Blood NEG Urine Nitrite NEG Urine Bilirubin NEG Urine Leukocyte Esterase NEG Urine Squamous Epithelial Cells 0-5 /hpf Microscopic Urinalysis Comment CULT NOT INDICATED White Blood Count 6.4 TH/MM3 Red Blood Count 3.75 MIL/MM3 Hemoglobin 12.7 GM/DL Hematocrit 36.5 % Mean Corpuscular Volume 97.3 FL Mean Corpuscular Hemoglobin 34.0 PG Mean Corpuscular Hemoglobin Concent 34.9 % Red Cell Distribution Width 13.9 % Platelet Count 235 TH/MM3 Mean Platelet Volume 7.9 FL Neutrophils (%) (Auto) 57.7 % Lymphocytes (%) (Auto) 33.5 % Monocytes (%) (Auto) 6.8 % Eosinophils (%) (Auto) 1.2 % Basophils (%) (Auto) 0.8 % Neutrophils # (Auto) 3.6 TH/MM3 Lymphocytes # (Auto) 2.2 TH/MM3 Monocytes # (Auto) 0.4 TH/MM3 Eosinophils # (Auto) 0.1 TH/MM3 Basophils # (Auto) 0.1 TH/MM3 CBC Comment DIFF FINAL Differential Comment Blood Urea Nitrogen 18 MG/DL Creatinine 0.71 MG/DL Random Glucose 90 MG/DL Total Protein 6.6 GM/DL Albumin 3.5 GM/DL Calcium Level 8.6 MG/DL Phosphorus Level 2.4 MG/DL Magnesium Level 1.8 MG/DL Alkaline Phosphatase 91 U/L Aspartate Amino Transf (AST/SGOT) 56 U/L Alanine Aminotransferase (ALT/SGPT) 33 U/L Total Bilirubin 0.6 MG/DL Sodium Level 132 MEQ/L Potassium Level 3.4 MEQ/L Chloride Level 96 MEQ/L Carbon Dioxide Level 26.8 MEQ/L Anion Gap 9 MEQ/L Estimat Glomerular Filtration Rate 86 ML/MIN Ethyl Alcohol Level 207 MG/DL [facility] Medical Decision Making Medical Screen Exam Complete: Yes Emergency Medical Condition: Yes Differential Diagnosis Metabolic abnormality, dehydration, anemia, alcohol intoxication Narrative Course Initial vital signs show heart rate 88, blood pressure 118/80, pulse ox 100% on room air, oral temp of 97.9F. CBC is unremarkable. CMP is remarkable for sodium 132, potassium 3.4, chloride 96, AST 56. UA is unremarkable. Alcohol level is 207. Patient was given a liter of normal saline IV. She was given 20 mEq of oral potassium. She was made aware of all findings. She is stable for discharge home with outpatient follow-up with her primary care physician this week. She was informed on when to return to the emergency department. She verbalizes understanding and agreement with plan. Diagnosis Primary Impression: Generalized weakness Additional Impression: Alcohol intoxication Qualified Codes: F10.920 - Alcohol use, unspecified with intoxication, uncomplicated Referrals: Primary Care Physician 3 days Additional Instructions: Follow-up with your primary care physician this week. Return to the emergency department for worsening symptoms or any other concerns. Disposition: 01 DISCHARGE HOME Condition: Stable Axel Levi MD May 17, 2017 20:38
[2017-05-17 20:58] VITALS: PULSE 77; RESP 13; O2SAT 97
[2017-05-17 21:02] LABS: BLOOD, URINE NEG (NEG); GLUCOSE,URINE NEG (NEG); KETONE, URINE NEG (NEG); NITRITE,URINE NEG (NEG); PH, URINE 5.5 (5.0-8.5)
[2017-05-17 21:24] LABS: AUTOMATED NEUTROPHIL # 3.6 TH/MM3 (1.8-7.7); BASOPHIL # 0.1 TH/MM3 (0-0.2); BASOPHIL % 0.8 % (0.0-2.0); EOSINOPHIL # 0.1 TH/MM3 (0-0.4); EOSINOPHIL % 1.2 % (0.0-4.0); HEMATOCRIT 36.5 % (35.0-46.0); HEMO FLAGS DIFF FINAL; LYMPH % 33.5 % (9.0-44.0); LYMPHOCYTE # 2.2 TH/MM3 (1.0-4.8); MEAN CELL VOLUME 97.3 FL (80.0-100.0); MEAN CORPUSCULAR HGB CONC 34.9 % (32.0-36.0); MONO % 6.8 % (0.0-8.0); NEUT % 57.7 % (16.0-70.0); PLATELET COUNT 235 TH/MM3 (150-450); RED BLOOD COUNT 3.75 MIL/MM3 (4.00-5.30); RED CELL DISTRIBUTION WIDTH 13.9 % (11.6-17.2); WHITE BLOOD COUNT 6.4 TH/MM3 (4.0-11.0)
[2017-05-17 21:33] LABS: CHLORIDE 96 MEQ/L (98-107); POTASSIUM 3.4 MEQ/L (3.5-5.1); SODIUM (NA) 132 MEQ/L (136-145)
[2017-05-17 21:35] LABS: URINE COLOR YELLOW (YELLW/STRAW)
[2017-05-17 21:36] LABS: COMMENT (UR) CULT NOT INDICATED; CULTURE IF INDICATED CULT NOT INDICATED; SQUAMOUS EPITHELIAL CELL URINE 0-5 /hpf (0-5)
[2017-05-17 21:37] LABS: ANION GAP 9 MEQ/L (5-15); BICARBONATE 26.8 MEQ/L (21.0-32.0); BLOOD UREA NITROGEN 18 MG/DL (7-18); MAGNESIUM 1.8 MG/DL (1.5-2.5)
[2017-05-17 21:55] LABS: ALKALINE PHOSPHATASE 91 U/L (45-117); ALT (GPT) 33 U/L (10-53); AST (GOT) 56 U/L (15-37); GLOMERULAR FILTRATION RATE 86 ML/MIN (>89); TOTAL BILIRUBIN ADULT 0.6 MG/DL (0.2-1.0)
[2017-05-17 21:56] LABS: ALCOHOL 207 MG/DL (0-5)
[2017-05-17 22:17] VITALS: BP 85/50; PULSE 78; RESP 14; O2SAT 97
[2017-05-17] MEDS ORDERED: POTASSIUM CHLORIDE 20 MEQ CONTROLLED RELEASE TAB PO ONE (22:30)
== END 2017-05-17 23:30 | disposition home or self-care (01) ==
LOC: PHED 19:19
DX: R53.1 Weakness (principal); F10.920 Alcohol use, unspecified with intoxication, uncomplicated; Z72.0 Tobacco use
CPT/HCPCS: 80053; 80307; 81001; 83735; 84100; 85025; 99283

== ENCOUNTER 2017-06-30 19:41 | Emergency (ER) | payer OTHER ==
[~2017-06-30] VITALS: Ht 160 cm; Wt 47.7 kg
[~2017-06-30 19:41] MED LIST changes: +ANAS1TAB PO; -MAGN1TAB14 PO; +MAGN400T3 PO; -POTA-163 PO; -TRAM50TA PO; +ZOFR4TAB PO; -[UNRECOGNIZED DRUG - REMARK] PO
[2017-06-30 20:01] VITALS: BP 139/63; PULSE 102; RESP 20; TEMP 98.3; O2SAT 100
[2017-06-30 20:40] LABS: BLOOD, URINE NEG (NEG); GLUCOSE,URINE NEG (NEG); KETONE, URINE NEG (NEG); NITRITE,URINE NEG (NEG)
[2017-06-30 20:44] LABS: URINE COLOR STRAW (YELLW/STRAW)
[2017-06-30 20:46] LABS: COMMENT (UR) CULT NOT INDICATED; CULTURE IF INDICATED CULT NOT INDICATED; RBC, URINE 0-2 /hpf (0-3); SQUAMOUS EPITHELIAL CELL URINE 0-5 /hpf (0-5); WBC, URINE 0-2 /hpf (0-5)
--- NOTE | 2017-06-30 22:05 | PD ---
HPI Chief Complaint: General Weakness Time Seen by Provider: 21:49 Travel History International Travel<30 days: No Contact w/Intl Traveler<30days: No Traveled to known affect area: No History of Present Illness HPI The patient is a 52-year-old female that complains of generalized myalgias, nausea and generalized weakness. She came in with the same symptoms last month and was found to have a very high alcohol level. She says her last beer was 7 PM tonight. She denies any focalized weakness or sensory loss. PFSH Past Medical History Autoimmune Disease: No Blood Disorders: No Bipolar Disorder: Yes Anxiety: Yes Depression: Yes Cancer: Yes (RIGHT BREAST) Cardiovascular Problems: No Chemotherapy: Yes (finished in [place] for Breast Cancer) Diminished Hearing: No Endocrine: No Gastrointestinal Disorders: No Genitourinary: Yes (UTI'S) Headaches: Yes Immune Disorder: No Musculoskeletal: No Neurologic: Yes Psychiatric: Yes (BIPOLAR) Reproductive: No Respiratory: No Immunizations Current: Yes Tetanus Vaccination: Unknown Influenza Vaccination: No ?: Not Menopausal: Yes : 1 Para: 1 Miscarriage: 0 : 0 Tubal Ligation: Yes Past Surgical History Body Medical Devices: PORT RT CHEST Other Surgery: Yes (RIGHT LUMPECTOMY) Social History Alcohol Use: Yes (DAILY 8-10 BEER CONSUMPTION ) Tobacco Use: Yes (3 CIG/DAY) Substance Use: Yes (MARIJUANA) Allergies-Medications (Allergen,Severity, Reaction): Coded Allergies: No Known Allergies (Verified Adverse Reaction, Unknown, 06/30/17) Reported Meds & Prescriptions Reported Meds & Active Scripts Active Reported Zofran (Ondansetron HCl) 4 Mg Tab 4 Mg PO Q8HR PRN Anastrozole 1 Mg Tab 1 Mg PO DAILY Review of Systems Except as stated in HPI: all other systems reviewed are Neg Physical Exam Narrative GENERAL: The patient is alert, oriented 3, has tangential thought patterns. Her vital signs show heart rate of 102 but otherwise normal. SKIN: Focused skin assessment warm/dry. HEAD: Atraumatic. Normocephalic. EYES: Pupils equal and round. No scleral icterus. No injection or drainage. ENT: No nasal bleeding or discharge. Mucous membranes pink and moist. NECK: Trachea midline. No JVD. CARDIOVASCULAR: Regular rate and rhythm. No murmur appreciated. RESPIRATORY: No accessory muscle use. Clear to auscultation. Breath sounds equal bilaterally. GASTROINTESTINAL: Abdomen soft, non-tender, nondistended. Hepatic margin is enlarged and slightly tender and splenic margins not palpable. No guarding or rebound is present. MUSCULOSKELETAL: No obvious deformities. No clubbing. No cyanosis. No edema. NEUROLOGICAL: Awake and alert. No obvious cranial nerve deficits. Motor grossly within normal limits. Normal speech. PSYCHIATRIC: Appropriate mood and affect; insight and judgment normal. Data Data Last Documented VS Vital Signs Date Time Temp Pulse Resp B/P (MAP) Pulse Ox O2 Delivery O2 Flow Rate FiO2 06/30/17 23:01 80 16 116/68 (84) 98 Room Air 06/30/17 20:01 98.3 Orders Orders Urinalysis - C+S If Indicated (06/30/17 20:29) Complete Blood Count With Diff (06/30/17 22:02) Comprehensive Metabolic Panel (06/30/17 22:02) Alcohol (Ethanol) (06/30/17 22:02) Labs Laboratory Tests Test 06/30/17 20:20 06/30/17 22:24 Urine Color STRAW Urine Turbidity CLEAR Urine pH 5.0 Urine Specific [place]ine 1.004 Urine Protein NEG mg/dL Urine Glucose (UA) NEG mg/dL Urine Ketones NEG mg/dL Urine Occult Blood NEG Urine Nitrite NEG Urine Bilirubin NEG Urine Leukocyte Esterase NEG Urine RBC 0-2 /hpf Urine WBC 0-2 /hpf Urine Squamous Epithelial Cells 0-5 /hpf Urine Bacteria NONE /hpf Microscopic Urinalysis Comment CULT NOT INDICATED White Blood Count 6.1 TH/MM3 Red Blood Count 3.36 MIL/MM3 Hemoglobin 11.4 GM/DL Hematocrit 33.5 % Mean Corpuscular Volume 99.7 FL Mean Corpuscular Hemoglobin 34.1 PG Mean Corpuscular Hemoglobin Concent 34.2 % Red Cell Distribution Width 14.8 % Platelet Count 255 TH/MM3 Mean Platelet Volume 7.6 FL Neutrophils (%) (Auto) 61.6 % Lymphocytes (%) (Auto) 32.0 % Monocytes (%) (Auto) 5.2 % Eosinophils (%) (Auto) 0.7 % Basophils (%) (Auto) 0.5 % Neutrophils # (Auto) 3.8 TH/MM3 Lymphocytes # (Auto) 2.0 TH/MM3 Monocytes # (Auto) 0.3 TH/MM3 Eosinophils # (Auto) 0.0 TH/MM3 Basophils # (Auto) 0.0 TH/MM3 CBC Comment DIFF FINAL Differential Comment Blood Urea Nitrogen 16 MG/DL Random Glucose 99 MG/DL Albumin 3.5 GM/DL Calcium Level 8.7 MG/DL Alkaline Phosphatase 160 U/L Sodium Level 135 MEQ/L Potassium Level 4.1 MEQ/L Chloride Level 96 MEQ/L Carbon Dioxide Level 26.8 MEQ/L Anion Gap 12 MEQ/L Estimat Glomerular Filtration Rate 81 ML/MIN Ethyl Alcohol Level 75 MG/DL [id number] Medical Decision Making Medical Screen Exam Complete: Yes Emergency Medical Condition: Yes Medical Record Reviewed: Yes Interpretation(s) The complete metabolic profile shows a GFR of 81, alkaline phosphatase of 160, GOT of 164 and ALT of 121. The sodium is 135. The rest of the complete metabolic profile is normal. Alcohol level is 75. The CBC is normal except for hemoglobin of 11.4 and hematocrit of 33.5. The urinalysis is normal and culture is not indicated. Differential Diagnosis Alcohol abuse, alcohol intoxication, electrolyte disorder, hypo-/hyperglycemia, musculoskeletal pain back Narrative Course It is now 11:30 PM and the patient states her main complaint now is generalized back pain from the neck to the sacral area bilaterally. There is no radiation of pain, numbness or weakness. She appears to have been alcohol intoxicated at the time she had her symptoms of weakness and dizziness. Impression: Alcohol abuse. Plan: The patient was given Toradol tonight and Motrin for the back pain. She is to discontinue alcohol. Diagnosis Primary Impression: Alcohol abuse Additional Impression: Musculoskeletal pain Med/Other Pt SpecificInfo: Prescription(s) given Scripts Ibuprofen (Ibuprofen) 600 Mg Tab 600 MG PO TID, #33 TAB 0 Refills Prov: Case Acosta MD 06/30/17 Disposition: 01 DISCHARGE HOME Condition: Stable Case Acosta MD Jun 30, 2017 22:05
[2017-06-30 22:30] LABS: AUTOMATED NEUTROPHIL # 3.8 TH/MM3 (1.8-7.7); BASOPHIL % 0.5 % (0.0-2.0); EOSINOPHIL % 0.7 % (0.0-4.0); HEMATOCRIT 33.5 % (35.0-46.0); HEMO FLAGS DIFF FINAL; MEAN CELL VOLUME 99.7 FL (80.0-100.0); MEAN CORPUSCULAR HEMOGLOBIN 34.1 PG (27.0-34.0); MEAN CORPUSCULAR HGB CONC 34.2 % (32.0-36.0); MONO % 5.2 % (0.0-8.0); NEUT % 61.6 % (16.0-70.0); PLATELET COUNT 255 TH/MM3 (150-450); RED BLOOD COUNT 3.36 MIL/MM3 (4.00-5.30); RED CELL DISTRIBUTION WIDTH 14.8 % (11.6-17.2); WHITE BLOOD COUNT 6.1 TH/MM3 (4.0-11.0)
[2017-06-30 22:44] LABS: CHLORIDE 96 MEQ/L (98-107); POTASSIUM 4.1 MEQ/L (3.5-5.1); SODIUM (NA) 135 MEQ/L (136-145)
[2017-06-30 22:49] LABS: ANION GAP 12 MEQ/L (5-15); BICARBONATE 26.8 MEQ/L (21.0-32.0); BLOOD UREA NITROGEN 16 MG/DL (7-18)
[2017-06-30 22:52] LABS: ALT (GPT) 121 U/L (10-53); AST (GOT) 164 U/L (15-37); GLOMERULAR FILTRATION RATE 81 ML/MIN (>89)
[2017-06-30 22:54] LABS: TOTAL BILIRUBIN ADULT 0.3 MG/DL (0.2-1.0)
[2017-06-30 22:55] LABS: ALCOHOL 75 MG/DL (0-5); ALKALINE PHOSPHATASE 160 U/L (45-117)
[2017-06-30 23:01] VITALS: BP 116/68; PULSE 80; RESP 16; O2SAT 98
[2017-06-30] MEDS ORDERED: IBUP-232 PO (23:33)
[2017-06-30] MEDS ORDERED: KETOROLAC TROMETHAMINE 60 MG/2 ML (IM) VIAL IVP ONE (23:45)
[2017-07-01 00:04] VITALS: BP 104/64
== END 2017-07-01 00:06 | disposition home or self-care (01) ==
LOC: PHED 19:41
DX: F10.10 Alcohol abuse, uncomplicated (principal); M54.2 Cervicalgia; M54.6 Pain in thoracic spine; M54.5 Low back pain; R11.0 Nausea; R53.1 Weakness; Z72.0 Tobacco use; Z85.3 Personal history of malignant neoplasm of breast; Z86.59 Personal history of other mental and behavioral disorders; Z87.448 Personal history of other diseases of urinary system; Z86.69 Personal history of other diseases of the nervous system and sense organs
CPT/HCPCS: 80053; 80307; 81001; 85025; 96374; 99284; J1885

== ENCOUNTER 2018-01-19 04:33 | Emergency (ER) | payer OTHER ==
[~2018-01-19] VITALS: Ht 160 cm; Wt 53.0 kg
[~2018-01-19 04:33] MED LIST changes: +IBUP-232 PO; -LORA-474 PO; -MAGN400T3 PO
[2018-01-19 04:37] VITALS: BP 142/78; PULSE 138; RESP 20; TEMP 98.9; O2SAT 98
--- NOTE | 2018-01-19 05:14 | PD ---
HPI Chief Complaint: Edema Time Seen by Provider: 04:42 Travel History International Travel<30 days: No Contact w/Intl Traveler<30days: No Traveled to known affect area: No History of Present Illness HPI The patient is a 52-year-old female who presents to the emergency department for bilateral lower extremity pitting edema. The patient was just hospitalized for several days at [facility] for COPD/bronchitis exacerbation. The patient had minimal edema at that time but was discharged home on prednisone. The patient states her last several days she has had increase in edema of both lower extremities from the knees inferiorly. She notes a small amount of weeping from the right ankle area. She denies any swelling to the upper extremities. She denies any history of DVT or PE. The patient does have a history of chronic alcohol abuse and drinks approximately 8 beers daily. The patient saw her primary physician on Wednesday, Dr. Chaudhari, who prescribed her thiamine. However, she spoke with the pharmacist who stated she could buy thiamine [id number] as it was a B vitamin. The patient does have a history of edema to lower extremities in the past, however, states this is the most severe. She denies any current chest pain and states her shortness of breath has significantly improved since her COPD/bronchitis exacerbation. The patient thinks her swelling may be secondary to the prednisone. She denies any fever, chills, or sweats. The edema is worse at the end of the day and slightly better in the morning. PFSH Past Medical History Autoimmune Disease: No Blood Disorders: No Bipolar Disorder: Yes Anxiety: Yes Depression: Yes Cancer: Yes (RIGHT BREAST) Cardiovascular Problems: No Chemotherapy: Yes (finished in [place] for Breast Cancer) Diminished Hearing: No Endocrine: No Gastrointestinal Disorders: No Genitourinary: Yes (UTI'S) Headaches: Yes Immune Disorder: No Musculoskeletal: No Neurologic: Yes Psychiatric: Yes (BIPOLAR) Reproductive: No Respiratory: No Immunizations Current: Yes ?: Not Menopausal: Yes : 1 Para: 1 Miscarriage: 0 : 0 Tubal Ligation: Yes Past Surgical History Body Medical Devices: PORT RT CHEST Other Surgery: Yes (RIGHT LUMPECTOMY) Social History Alcohol Use: Yes (DAILY 8-10 BEER CONSUMPTION ) Tobacco Use: Yes (3 CIG/DAY) Substance Use: Yes (MARIJUANA) Allergies-Medications (Allergen,Severity, Reaction): Coded Allergies: No Known Allergies (Verified Adverse Reaction, Unknown, 01/19/18) Reported Meds & Prescriptions Reported Meds & Active Scripts Active Ibuprofen 600 Mg Tab 600 Mg PO TID Reported Zofran (Ondansetron HCl) 4 Mg Tab 4 Mg PO Q8HR PRN Anastrozole 1 Mg Tab 1 Mg PO DAILY Review of Systems Except as stated in HPI: all other systems reviewed are Neg General / Constitutional: No: Fever Cardiovascular: No: Chest Pain or Discomfort Respiratory: No: Shortness of Breath Gastrointestinal: No: Nausea, Vomiting, Abdominal Pain Genitourinary: No: Decreased Urinary Output Musculoskeletal: Positive: Edema Skin: No Rash, No Itching Neurologic: No: Dizziness Physical Exam Narrative GENERAL: Awake, alert, pleasant 52-year-old female who appears her stated age and is in no acute respiratory distress. Slightly anxious. SKIN: Focused skin assessment warm/dry. Telangiectasia noted on the cheeks bilaterally. HEAD: Atraumatic. Normocephalic. EYES: Pupils equal and round. No scleral icterus. No injection or drainage. ENT: No nasal bleeding or discharge. Mucous membranes pink and moist. NECK: Trachea midline. No JVD. CARDIOVASCULAR: Regular, tachycardic with a heart rate of 110. RESPIRATORY: No accessory muscle use. Clear to auscultation. Breath sounds equal bilaterally. MUSCULOSKELETAL: Bilateral lower extremity pitting edema. Small blister on the lateral left mid tibia/fibula as well as a small blister with clear leakage on the lateral aspect of the right ankle. Pitting edema extends up to the knees. NEUROLOGICAL: Awake and alert. No obvious cranial nerve deficits. Motor grossly within normal limits. Normal speech. PSYCHIATRIC: Appropriate mood and affect; insight and judgment normal. Data Data Last Documented VS Vital Signs Date Time Temp Pulse Resp B/P (MAP) Pulse Ox O2 Delivery O2 Flow Rate FiO2 01/19/18 04:37 98.9 138 20 142/78 (99) 98 Orders Orders Complete Blood Count With Diff (01/19/18 04:53) Comprehensive Metabolic Panel (01/19/18 04:53) Kristian Bandage (01/19/18 04:53) Potassium Chloride (Kcl) (01/19/18 05:45) Labs Laboratory Tests Test 01/19/18 05:10 White Blood Count 11.7 TH/MM3 Red Blood Count 2.90 MIL/MM3 Hemoglobin 9.7 GM/DL Hematocrit 28.5 % Mean Corpuscular Volume 98.5 FL Mean Corpuscular Hemoglobin 33.5 PG Mean Corpuscular Hemoglobin Concent 34.0 % Red Cell Distribution Width 14.8 % Platelet Count 461 TH/MM3 Mean Platelet Volume 7.6 FL CBC Comment AUTO DIFF Differential Total Cells Counted 100 Neutrophils % (Manual) 78 % Band Neutrophils % 1 % Lymphocytes % 17 % Monocytes % 4 % Neutrophils # (Manual) 9.2 TH/MM3 Differential Comment FINAL DIFF MANUAL Platelet Estimate HIGH Platelet Morphology Comment ENLARGED Blood Urea Nitrogen 4 MG/DL Creatinine 0.57 MG/DL Random Glucose 151 MG/DL Total Protein 6.6 GM/DL Albumin 3.3 GM/DL Calcium Level 9.3 MG/DL Alkaline Phosphatase 91 U/L Aspartate Amino Transf (AST/SGOT) 60 U/L Alanine Aminotransferase (ALT/SGPT) 116 U/L Total Bilirubin 0.3 MG/DL Sodium Level 139 MEQ/L Potassium Level 3.0 MEQ/L Chloride Level 103 MEQ/L Carbon Dioxide Level 23.1 MEQ/L Anion Gap 13 MEQ/L Estimat Glomerular Filtration Rate 111 ML/MIN MDM Medical Decision Making Medical Screen Exam Complete: Yes Emergency Medical Condition: Yes Medical Record Reviewed: Yes Interpretation(s) Laboratory Tests Test 01/19/18 05:10 White Blood Count 11.7 TH/MM3 Red Blood Count 2.90 MIL/MM3 Hemoglobin 9.7 GM/DL Hematocrit 28.5 % Mean Corpuscular Volume 98.5 FL Mean Corpuscular Hemoglobin 33.5 PG Mean Corpuscular Hemoglobin Concent 34.0 % Red Cell Distribution Width 14.8 % Platelet Count 461 TH/MM3 Mean Platelet Volume 7.6 FL CBC Comment AUTO DIFF Differential Total Cells Counted 100 Neutrophils % (Manual) 78 % Band Neutrophils % 1 % Lymphocytes % 17 % Monocytes % 4 % Neutrophils # (Manual) 9.2 TH/MM3 Differential Comment FINAL DIFF MANUAL Platelet Estimate HIGH Platelet Morphology Comment ENLARGED Blood Urea Nitrogen 4 MG/DL Creatinine 0.57 MG/DL Random Glucose 151 MG/DL Total Protein 6.6 GM/DL Albumin 3.3 GM/DL Calcium Level 9.3 MG/DL Alkaline Phosphatase 91 U/L Aspartate Amino Transf (AST/SGOT) 60 U/L Alanine Aminotransferase (ALT/SGPT) 116 U/L Total Bilirubin 0.3 MG/DL Sodium Level 139 MEQ/L Potassium Level 3.0 MEQ/L Chloride Level 103 MEQ/L Carbon Dioxide Level 23.1 MEQ/L Anion Gap 13 MEQ/L Estimat Glomerular Filtration Rate 111 ML/MIN Differential Diagnosis Differential diagnosis includes DVT, dependent edema, hypoalbuminemia, hyponatremia, mineralocorticoid effect from prednisone, medication side effect, acute kidney injury, acute renal failure, congestive heart failure, cardiomyopathy. Narrative Course IV was established, labs are drawn and sent, and the patient was placed on cardiac telemetry monitoring and continuous pulse oximetry monitoring. Both lower extremities were wrapped with Kristian wrap starting at the feet and extending superiorly to the knees. I doubt DVT as the patient has bilateral lower extremity edema, her symptoms seem to wax and wane but are worse at the end of the day, most likely dependent edema. However, sodium level and albumin level were sent to lab to evaluate for contributing factors. Albumin is minimally low at 3.3. Sodium is normal. The patient's potassium was low, was replaced orally. The patient is advised to elevate her legs, Kristian wraps as needed, and then transition to ISABELLA hose/compression stockings. Diagnosis Primary Impression: Dependent edema Patient Instructions: General Instructions Additional Instructions: Kristian wraps as shown in the emergency department. Wear compression stockings as soon as possible. Elevate legs. Monitor salt intake. Follow-up with your primary physician. Return if symptoms worsen or progress. Consider alcohol cessation or cutting back. Med/Other Pt SpecificInfo: No Change to Meds Disposition: 01 DISCHARGE HOME Condition: Stable Mingo Carrasquillo MD January 19, 2018 05:14
[2018-01-19 05:27] LABS: HEMATOCRIT 28.5 % (35.0-46.0); HEMOGLOBIN 9.7 GM/DL (11.6-15.3); MEAN CELL VOLUME 98.5 FL (80.0-100.0); MEAN CORPUSCULAR HEMOGLOBIN 33.5 PG (27.0-34.0); MEAN PLATELET VOLUME 7.6 FL (7.0-11.0); PLATELET COUNT 461 TH/MM3 (150-450); RED CELL DISTRIBUTION WIDTH 14.8 % (11.6-17.2); WHITE BLOOD COUNT 11.7 TH/MM3 (4.0-11.0)
[2018-01-19 05:35] LABS: CHLORIDE 103 MEQ/L (98-107); SODIUM (NA) 139 MEQ/L (136-145)
[2018-01-19 05:38] LABS: CALCIUM 9.3 MG/DL (8.5-10.1)
[2018-01-19 05:39] LABS: ALBUMIN 3.3 GM/DL (3.4-5.0); BICARBONATE 23.1 MEQ/L (21.0-32.0); BLOOD UREA NITROGEN 4 MG/DL (7-18); GLUCOSE,RANDOM 151 MG/DL (74-106)
[2018-01-19 05:42] LABS: ALT (GPT) 116 U/L (10-53); AST (GOT) 60 U/L (15-37); BANDS 1 % (0-6); CREATININE 0.57 MG/DL (0.50-1.00); GLOMERULAR FILTRATION RATE 111 ML/MIN (>89); LYMPHOCYTES 17 % (9-44); MONOCYTES 4 % (0-8); NEUTROPHIL # MANUAL DIFF 9.2 TH/MM3 (1.8-7.7); POLYS (SEG NEUTROPHILS) 78 % (16-70)
[2018-01-19 05:43] LABS: TOTAL BILIRUBIN ADULT 0.3 MG/DL (0.2-1.0)
[2018-01-19 05:44] LABS: TOTAL PROTEIN 6.6 GM/DL (6.4-8.2)
[2018-01-19 05:45] LABS: ALKALINE PHOSPHATASE 91 U/L (45-117)
[2018-01-19] MEDS ORDERED: POTASSIUM CHLORIDE 20 MEQ CONTROLLED RELEASE TAB PO ONE (05:45)
[2018-01-19] MEDS ORDERED: POTASSIUM CHLORIDE 25 MEQ EFFERVESCENT TAB PO ONE (06:15)
[2018-01-19 06:30] VITALS: BP 140/74
== END 2018-01-19 06:34 | disposition home or self-care (01) ==
LOC: PHED 04:33
DX: R60.9 Edema, unspecified (principal); R00.0 Tachycardia, unspecified; I78.1 Nevus, non-neoplastic; F12.90 Cannabis use, unspecified, uncomplicated; F41.8 Other specified anxiety disorders; Z85.3 Personal history of malignant neoplasm of breast; Z72.0 Tobacco use
CPT/HCPCS: 80053; 85007; 85027; 99283

== ENCOUNTER 2018-02-02 07:27 | Emergency (ER) | payer OTHER ==
[~2018-02-02] VITALS: Ht 160 cm; Wt 50.0 kg
[2018-02-02 07:35] VITALS: BP 145/75; PULSE 125; RESP 20; TEMP 98.9; O2SAT 99
[2018-02-02] MEDS ORDERED: MULTTAB67 PO (07:57)
[2018-02-02] MEDS ORDERED: POTA595T PO (07:57)
[2018-02-02] MEDS ORDERED: LORA1TAB12 PO (07:57)
[2018-02-02] MEDS ORDERED: FOLI1TAB6 PO (07:57)
[2018-02-02] MEDS ORDERED: VITATAB56 PO (07:57)
[2018-02-02 08:15] VITALS: BP 127/72; PULSE 112; RESP 16; O2SAT 100
[2018-02-02 08:26] LABS: HEMATOCRIT 26.3 % (35.0-46.0); HEMOGLOBIN 9.1 GM/DL (11.6-15.3); MEAN CELL VOLUME 101.2 FL (80.0-100.0); MEAN CORPUSCULAR HEMOGLOBIN 34.9 PG (27.0-34.0); MEAN CORPUSCULAR HGB CONC 34.5 % (32.0-36.0); MEAN PLATELET VOLUME 7.4 FL (7.0-11.0); PLATELET COUNT 269 TH/MM3 (150-450); RED CELL DISTRIBUTION WIDTH 15.6 % (11.6-17.2)
[2018-02-02 08:45] LABS: LYMPHOCYTES 14 % (9-44); MONOCYTES 7 % (0-8); POLYS (SEG NEUTROPHILS) 79 % (16-70)
[2018-02-02 08:47] LABS: CHLORIDE 106 MEQ/L (98-107); SODIUM (NA) 139 MEQ/L (136-145)
[2018-02-02 08:50] LABS: CALCIUM 8.4 MG/DL (8.5-10.1)
[2018-02-02 08:51] LABS: ALBUMIN 3.3 GM/DL (3.4-5.0); BICARBONATE 25.2 MEQ/L (21.0-32.0); BLOOD UREA NITROGEN 5 MG/DL (7-18); GLUCOSE,RANDOM 78 MG/DL (74-106); MAGNESIUM 1.5 MG/DL (1.5-2.5)
[2018-02-02 08:54] LABS: ALT (GPT) 26 U/L (10-53); AST (GOT) 33 U/L (15-37); CREATININE 0.65 MG/DL (0.50-1.00); GLOMERULAR FILTRATION RATE 95 ML/MIN (>89)
[2018-02-02 08:55] LABS: TOTAL BILIRUBIN ADULT 0.4 MG/DL (0.2-1.0)
[2018-02-02 08:56] LABS: TOTAL PROTEIN 6.8 GM/DL (6.4-8.2)
[2018-02-02 08:57] LABS: ALKALINE PHOSPHATASE 94 U/L (45-117)
[2018-02-02 09:15] VITALS: BP 125/67; PULSE 112; RESP 18; O2SAT 100
--- NOTE | 2018-02-02 09:25 | PD ---
HPI Chief Complaint: Edema Time Seen by Provider: 07:41 Travel History International Travel<30 days: No Contact w/Intl Traveler<30days: No Traveled to known affect area: No History of Present Illness HPI This 52-year-old female is complaining of pain in her feet. She was here the other day and noted to have ankle edema. Workup was done and she was found to have dependent edema. She is a heavy drinker. She is now drinking only beer though she does drink daily. She had a low albumin. She is having pain on the top of her feet with the swelling is. She has not had fever or chills. She has been taking ibuprofen for the pain and it has not been helpful. PFSH Past Medical History Autoimmune Disease: No Blood Disorders: No Bipolar Disorder: Yes Anxiety: Yes Depression: Yes Cancer: Yes (RIGHT BREAST) Cardiovascular Problems: No Chemotherapy: Yes COPD: Yes Diminished Hearing: No Endocrine: No Gastrointestinal Disorders: No Genitourinary: Yes (UTI'S) Headaches: Yes Immune Disorder: No Musculoskeletal: No Neurologic: Yes Psychiatric: Yes (BIPOLAR) Reproductive: No Respiratory: No Immunizations Current: Yes Radiation Therapy: Yes ?: Not Menopausal: Yes : 1 Para: 1 Miscarriage: 0 : 0 Tubal Ligation: Yes Past Surgical History Body Medical Devices: PORT RT CHEST Other Surgery: Yes (RIGHT LUMPECTOMY, port placement/removal right chest) Social History Alcohol Use: Yes (DAILY 8-10 BEER CONSUMPTION ) Tobacco Use: Yes (1/2-3/4 ppd) Substance Use: Yes (MARIJUANA) Allergies-Medications (Allergen,Severity, Reaction): Coded Allergies: No Known Allergies (Verified Adverse Reaction, Unknown, 02/02/18) Reported Meds & Prescriptions Reported Meds & Active Scripts Active Reported Multiple Vitamin 1 Tab 1 Tab PO DAILY Lorazepam 1 Mg Tab 1 Mg PO Q6H PRN Folic Acid 1 Mg Tablet 1 Tab PO DAILY Potassium Gluconate 595 Mg (99 Mg) Tab 1 Tab PO DAILY Vitamin D-400 (Cholecalciferol) 400 Unit Tab 400 Units PO DAILY Anastrozole 1 Mg Tab 1 Mg PO DAILY Review of Systems Except as stated in HPI: all other systems reviewed are Neg General / Constitutional: No: Fever, Chills Eyes: No: Diploplia HENT: No: Headaches, Vertigo Cardiovascular: Positive: Edema, No: Chest Pain or Discomfort, Palpitations Respiratory: No: Cough, Shortness of Breath Gastrointestinal: No: Nausea, Vomiting Genitourinary: No: Urgency, Frequency Musculoskeletal: No: Myalgias, Arthralgias Neurologic: No: Weakness Hematologic/Lymphatic: Positive: Easy Bruising Physical Exam Narrative GENERAL: Well-developed female SKIN: Focused skin assessment warm/dry. HEAD: Atraumatic. Normocephalic. EYES: Pupils equal and round. No scleral icterus. No injection or drainage. ENT: No nasal bleeding or discharge. Mucous membranes pink and moist. NECK: Trachea midline. No JVD. CARDIOVASCULAR: Regular rate and rhythm. No murmur appreciated. RESPIRATORY: No accessory muscle use. Clear to auscultation. Breath sounds equal bilaterally. GASTROINTESTINAL: Abdomen soft, non-tender, nondistended. Hepatic and splenic margins not palpable. MUSCULOSKELETAL: No obvious deformities. No clubbing. No cyanosis. Bilateral pedal edema. NEUROLOGICAL: Awake and alert. No obvious cranial nerve deficits. Motor grossly within normal limits. Normal speech. PSYCHIATRIC: Appropriate mood and affect; insight and judgment normal. Data Data Last Documented VS Vital Signs Date Time Temp Pulse Resp B/P (MAP) Pulse Ox O2 Delivery O2 Flow Rate FiO2 02/02/18 07:50 130 20 100 Room Air 02/02/18 07:35 98.9 145/75 (98) Orders Orders Complete Blood Count With Diff (02/02/18 08:09) Comprehensive Metabolic Panel (02/02/18 08:09) B-Type Natriuretic Peptide (02/02/18 08:09) Prothrombin Time / Inr (Pt) (02/02/18 08:09) Act Partial Throm Time (Ptt) (02/02/18 08:09) Magnesium (Mg) (02/02/18 08:09) Alcohol (Ethanol) (02/02/18 08:00) Labs Laboratory Tests Test 02/02/18 08:00 White Blood Count 5.0 TH/MM3 Red Blood Count 2.60 MIL/MM3 Hemoglobin 9.1 GM/DL Hematocrit 26.3 % Mean Corpuscular Volume 101.2 FL Mean Corpuscular Hemoglobin 34.9 PG Mean Corpuscular Hemoglobin Concent 34.5 % Red Cell Distribution Width 15.6 % Platelet Count 269 TH/MM3 Mean Platelet Volume 7.4 FL CBC Comment AUTO DIFF Differential Total Cells Counted 100 Neutrophils % (Manual) 79 % Lymphocytes % 14 % Monocytes % 7 % Neutrophils # (Manual) 4.0 TH/MM3 Differential Comment FINAL DIFF MANUAL Platelet Estimate NORMAL Platelet Morphology Comment NORMAL Prothrombin Time 10.0 SEC Prothromb Time International Ratio 1.0 RATIO Activated Partial Thromboplast Time 25.4 SEC Blood Urea Nitrogen 5 MG/DL Creatinine 0.65 MG/DL Random Glucose 78 MG/DL Total Protein 6.8 GM/DL Albumin 3.3 GM/DL Calcium Level 8.4 MG/DL Magnesium Level 1.5 MG/DL Alkaline Phosphatase 94 U/L Aspartate Amino Transf (AST/SGOT) 33 U/L Alanine Aminotransferase (ALT/SGPT) 26 U/L Total Bilirubin 0.4 MG/DL Sodium Level 139 MEQ/L Potassium Level 3.7 MEQ/L Chloride Level 106 MEQ/L Carbon Dioxide Level 25.2 MEQ/L Anion Gap 8 MEQ/L Estimat Glomerular Filtration Rate 95 ML/MIN B-Type Natriuretic Peptide 27 PG/ML Ethyl Alcohol Level LESS THAN 3 MG/DL MDM Medical Decision Making Medical Screen Exam Complete: Yes Emergency Medical Condition: Yes Medical Record Reviewed: Yes Differential Diagnosis Differential includes cirrhosis, pedal edema, alcohol abuse Narrative Course Patient does have pedal edema. She says it is gotten a bit better since she has been using Kristian compression wraps. She is to continue to keep her legs elevated. She has been taking ibuprofen for pain and I told her to stop ibuprofen. She is at high risk for GI bleed. I have also told her she should not take Tylenol as she undoubtedly has cirrhosis. I have encouraged her and stressed to her the importance that she stopped drinking Diagnosis Primary Impression: Pedal edema Patient Instructions: General Instructions, Leg Edema (ED) Departure Forms: Tests/Procedures Disposition: DISCHARGE HOME Condition: Stable Gordy Fleming MD Feb 02, 2018 09:25
== END 2018-02-02 09:51 | disposition home or self-care (01) ==
LOC: PHED 07:27
DX: R60.0 Localized edema (principal); M79.671 Pain in right foot; M79.672 Pain in left foot; F41.8 Other specified anxiety disorders; F31.9 Bipolar disorder, unspecified; C50.911 Malignant neoplasm of unspecified site of right female breast; F17.200 Nicotine dependence, unspecified, uncomplicated; Z79.811 Long term (current) use of aromatase inhibitors; Z87.09 Personal history of other diseases of the respiratory system; Z87.448 Personal history of other diseases of urinary system; Z86.69 Personal history of other diseases of the nervous system and sense organs
CPT/HCPCS: 80053; 80307; 83735; 83880; 85007; 85027; 85610; 85730; 99283